=== PATIENT | female | born 1930 | race Caucasian/White ===

== ENCOUNTER 2016-10-23 22:02 | Inpatient (IN) | payer MEDICARE, OTHER, MEDICAID ==
[2016-10-23] MEDS ORDERED: Sodium Chloride 0.9% 1,000 ML IV SCH (22:15)
[2016-10-23] MEDS ORDERED: Levofloxacin/Dextrose 5%-Water 750 MG in Premix Bag 1 BAG IV ONE (23:22)
--- NOTE | 2016-10-24 00:19 | EDM.PDOC ---
ED HISTORY OF PRESENT ILLNESS - General Chief Complaint: Respiratory Problem Stated Complaint: [facility] Time Seen by Provider: 10/23/16 22:08 Source: Reports: Patient History Limitations: Reports: No limitations - History of Present Illness INITIAL COMMENTS - FREE TEXT/NARRATIVE: History of present illness: [86-year-old female is presenting [facility] with a cough congestion and fever and shortness of breath. Her sats are in the mid 80s off of O2. She is not O2 dependent usually. She is pleasant and alert and quite sharp for her age ] Review of systems: As per history of present illness and below otherwise all systems reviewed and negative. Past medical history: As per history of present illness and as reviewed below otherwise noncontributory. Surgical history: As per history of present illness and as reviewed below otherwise noncontributory. Social history: No reported history of drug or alcohol abuse. Family history: As per history of present illness and as reviewed below otherwise noncontributory. Physical exam: HEENT: Atraumatic, normocephalic, pupils reactive, negative for conjunctival pallor or scleral icterus, mucous membranes moist, throat clear, neck supple, nontender, trachea midline. Lungs: Breath sounds are diminished throughout her lung [place] Heart: S1S2, regular, negative for clicks, rubs, or JVD. Abdomen: Soft, nondistended, nontender. Negative for masses or hepatosplenomegaly. Negative for costovertebral tenderness. Pelvis: Stable nontender. Genitourinary: Deferred. Rectal: Deferred. Extremities: Atraumatic, negative for cords or calf pain. Neurovascular unremarkable. Neuro: Awake, alert, oriented Exam nonfocal. Diagnostics: [Chest x-ray suggests an interstitial pneumonia. Influenza A and B. are negative her white count is a little low platelet count is also a little low] Therapeutics: [We've given her IV Levaquin here in the ER] Impression: [Interstitial pneumonitis] Plan: [Patient will be admitted the hospitalist Swati has been contacted] Definitive disposition and diagnosis as appropriate pending reevaluation and review of above. - Related Data Allergies/ADRs: Allergies Allergy/AdvReac Type Severity Reaction Status Date / Time lactose Allergy Abdominal Verified 10/23/16 23:41 Pain Home Meds: Home Meds Bimatoprost [Lumigan 0.01% Ophth Soln] 1 drop EYEBOTH DAILY 09/14/14 [History] Timolol Maleate [Timoptic 0.5% Ophth Soln] 1 drop EYEBOTH BID 03/20/14 [History] amLODIPine Besylate [Amlodipine Besylate] 5 mg PO BID 03/20/14 [History] cloNIDine [Catapres] 0.2 mg PO TID 03/20/14 [History] Clopidogrel [Plavix] 75 mg PO DAILY 04/06/15 [History] Multivitamin [Multivitamins] 1 tab PO DAILY 04/06/15 [History] atorvaSTATin [Lipitor] 40 mg PO BEDTIME 04/06/15 [History] Acetaminophen 650 mg PO DAILY 10/13/15 [History] Hydrochlorothiazide [Microzide] 2 tab PO DAILY 10/13/15 [History] Losartan [Cozaar] 50 mg PO BID 10/13/15 [History] [place]-3 Fatty Acids [Fish Oil] 1,200 mg PO DAILY 10/13/15 [History] PEG 400/Hypromellose/Glycerin [Artificial Tears Drops] 1 drop EYEBOTH DAILY PRN 10/13/15 [History] Pramipexole [Mirapex] 0.125 mg PO BEDTIME 10/13/15 [History] Alum Hydrox/Mag Hydrox/Simeth [Maalox Advanced] 30 ml PO ASDIRECTED PRN [History] Bisacodyl [Biscolax] 10 mg RC ASDIRECTED PRN 10/23/16 [History] Bismuth Subsalicylate [Pepto Bismol] 30 ml PO ASDIRECTED PRN 10/23/16 [History] Loperamide [Imodium AD] 2 mg PO ASDIRECTED PRN 10/23/16 [History] Magnesium Hydroxide [Milk of Magnesia] 30 ml PO ASDIRECTED PRN 10/23/16 [History ] Polyethylene Glycol 3350 [MiraLAX] 17 gm PO ASDIRECTED PRN 10/23/16 [History] guaiFENesin [Tussin] 10 ml PO ASDIRECTED PRN 10/23/16 [History] Past Medical History HEENT History: Reports: Cataract, Glaucoma, Other (see below) Other HEENT History: dry eye Cardiovascular History: Reports: High cholesterol, Hypertension Gastrointestinal History: Reports: Chronic constipation, Other (see below) Other Gastrointestinal History: Dyspepsia. nausea Genitourinary History: Reports: Urinary incontinence Musculoskeletal History: Reports: Arthritis, Fracture, Other (see below) Other Musculoskeletal History: Left mid-radial fracture. restless leg syndrome Neurological History: Reports: CVA - Infectious Disease History Infectious Disease History: Reports: Chicken pox, Measles - Past Surgical History Other HEENT Surgeries/Procedures: cataracts Social & Family History - Tobacco Use Smoking Status *Q: Never Smoker Second Hand Smoke Exposure: No - Caffeine Use Caffeine Use: Reports: Coffee - Alcohol Use Days Per Week of Alcohol Use: 0 - Recreational Drug Use Recreational Drug Use: No ED ROS GENERAL - Review of Systems Review Of Systems: ROS reveals no pertinent complaints other than HPI. ED EXAM, GENERAL - Physical Exam Exam: See Below Course - Vital Signs Last Recorded V/S: Last Vital Signs Temp 38.2 C H 10/23/16 22:07 Pulse 83 10/23/16 22:31 Resp 20 10/23/16 22:07 BP 151/78 H 10/23/16 22:31 Pulse Ox 91 L 10/23/16 22:31 - Orders/Labs/Meds Orders: Active Orders 24 hr Category Date Time Status EKG Documentation Completion [RC] ASDIRECTED Care 10/23/16 22:09 Active Chest 1V Frontal [CR] Stat Exams 10/23/16 22:09 Taken CULTURE BLOOD [BC] Stat Lab 10/23/16 22:11 Ordered CULTURE BLOOD [] Stat Lab 10/23/16 22:15 Received CULTURE RESPIRATORY + SMEAR [] Stat Lab 10/23/16 23:13 Uncollected CULTURE STREP A CONFIRMATION [] Stat Lab 10/23/16 22:42 Results STREP SCRN A RAPID W CULT CONF [] Stat Lab 10/23/16 22:42 Ordered Levofloxacin/Dextrose 5%-Water [Levaquin in D5W 750 MG/ Med 10/23/16 23:22 Ordered 150 ML] 750 mg Premix Bag 1 bag IV ONETIME Sodium Chloride 0.9% [Normal Saline] 1,000 ml Med 10/23/16 22:15 Active IV ASDIRECTED EKG 12 Lead [EK] Stat Ther 10/23/16 22:08 Ordered Medication Orders Sodium Chloride (Normal Saline) 1,000 mls @ 125 mls/hr IV ASDIRECTED EMILIANO Last Admin: 10/23/16 22:42 Dose: 125 mls/hr Levofloxacin/Dextrose 750 mg/ (Premix) 150 mls @ 100 mls/hr IV ONETIME ONE Stop: 10/24/16 00:51 Last Admin: 10/23/16 23:31 Dose: 100 mls/hr Labs: Laboratory Tests 10/23/16 10/23/16 10/23/16 Range/Units 22:15 22:15 22:15 WBC 4.3 L (4.5-11.0) K/uL RBC 4.34 (3.30-5.50) M/uL Hgb 12.7 (12.0-15.0) g/dL Hct 38.3 (36.0-48.0) % MCV 88 (80-98) fL MCH 29 (27-31) pg MCHC 33 (32-36) % Plt Count 94 L (150-400) K/uL Neut % (Auto) 54 (36-66) % Lymph % (Auto) 30 (24-44) % [place] % (Auto) 13 H (2-6) % Eos % (Auto) 3 (2-4) % Baso % (Auto) 1 (0-1) % PT 10.7 (9.5-12.0) sec INR 1.01 (0.80-1.20) ABG Hemoglobin (12.0-16.0) g/dL ABG Oxyhemoglobin % ABG Carboxyhemoglobin (0.0-1.6) % ABG Methemoglobin % VBG pH (7.350-7.450) VBG pCO2 mm/Hg VBG pO2 mm/Hg VBG HCO3 mmol/L VBG Total CO2 mmol/L VBG O2 Saturation VBG O2 Content %vol VBG Base Excess mm/L O2 Delivery Device Sodium 137 L (140-148) mmol/L Potassium 4.2 (3.6-5.2) mmol/L Chloride 100 (100-108) mmol/L Carbon Dioxide 28 (21-32) mmol/L Anion Gap 13.2 (5.0-14.0) mmol/L BUN 30 H (7-18) mg/dL Creatinine 1.7 H (0.6-1.0) mg/dL Est Cr Clr Drug Dosing 20.94 mL/min Estimated GFR (MDRD) 28 L (>60) Glucose 144 H (74-106) mg/dL Lactic Acid (0.4-2.0) mmol/L Calcium 8.6 (8.5-10.1) mg/dL Total Bilirubin 0.4 (0.2-1.0) mg/dL AST 40 H D (15-37) U/L ALT 60 D (12-78) U/L Alkaline Phosphatase 133 H (46-116) U/L Troponin I < 0.017 (0.000-0.056) ng/mL C-Reactive Protein (0.0-0.3) mg/dL Kid-D-Pnfrjendaqr Pept 244 (5-450) pg/mL Total Protein 7.4 (6.4-8.2) g/dL Albumin 3.3 L (3.4-5.0) g/dL Globulin 4.1 H (2.3-3.5) g/dL Albumin/Globulin Ratio 0.8 L (1.2-2.2) Urine Color Urine Appearance Urine pH (4.5-8.0) Ur Specific [place] (1.008-1.030) Urine Protein (NEGATIVE) mg/dL Urine Glucose (UA) (NEGATIVE) mg/dL Urine Ketones (NEGATIVE) mg/dL Urine Occult Blood (NEGATIVE) Urine Nitrite (NEGATIVE) Urine Bilirubin (NEGATIVE) Urine Urobilinogen (NORMAL) mg/dL Ur Leukocyte Esterase (NEGATIVE) Urine RBC (0-5) Urine WBC (0-5) Ur Epithelial Cells Amorphous Sediment Urine Bacteria Urine Mucus 10/23/16 10/23/16 10/23/16 Range/Units 22:15 22:15 22:15 WBC (4.5-11.0) K/uL RBC (3.30-5.50) M/uL Hgb (12.0-15.0) g/dL Hct (36.0-48.0) % MCV (80-98) fL MCH (27-31) pg MCHC (32-36) % Plt Count (150-400) K/uL Neut % (Auto) (36-66) % Lymph % (Auto) (24-44) % [place] % (Auto) (2-6) % Eos % (Auto) (2-4) % Baso % (Auto) (0-1) % PT (9.5-12.0) sec INR (0.80-1.20) ABG Hemoglobin 12.5 (12.0-16.0) g/dL ABG Oxyhemoglobin 90.1 % ABG Carboxyhemoglobin 2.4 H (0.0-1.6) % ABG Methemoglobin 0.6 % VBG pH 7.462 H (7.350-7.450) VBG pCO2 36.6 mm/Hg VBG pO2 63.7 mm/Hg VBG HCO3 25.8 mmol/L VBG Total CO2 22.9 mmol/L VBG O2 Saturation 92.9 VBG O2 Content 15.8 %vol VBG Base Excess 2.5 mm/L O2 Delivery Device Room air Sodium (140-148) mmol/L Potassium (3.6-5.2) mmol/L Chloride (100-108) mmol/L Carbon Dioxide (21-32) mmol/L Anion Gap (5.0-14.0) mmol/L BUN (7-18) mg/dL Creatinine (0.6-1.0) mg/dL Est Cr Clr Drug Dosing mL/min Estimated GFR (MDRD) (>60) Glucose (74-106) mg/dL Lactic Acid 1.7 (0.4-2.0) mmol/L Calcium (8.5-10.1) mg/dL Total Bilirubin (0.2-1.0) mg/dL AST (15-37) U/L ALT (12-78) U/L Alkaline Phosphatase (46-116) U/L Troponin I (0.000-0.056) ng/mL C-Reactive Protein 3.80 H (0.0-0.3) mg/dL Rom-[id number] Pept (5-450) pg/mL Total Protein (6.4-8.2) g/dL Albumin (3.4-5.0) g/dL Globulin (2.3-3.5) g/dL Albumin/Globulin Ratio (1.2-2.2) Urine Color Urine Appearance Urine pH (4.5-8.0) Ur Specific [place] (1.008-1.030) Urine Protein (NEGATIVE) mg/dL Urine Glucose (UA) (NEGATIVE) mg/dL Urine Ketones (NEGATIVE) mg/dL Urine Occult Blood (NEGATIVE) Urine Nitrite (NEGATIVE) Urine Bilirubin (NEGATIVE) Urine Urobilinogen (NORMAL) mg/dL Ur Leukocyte Esterase (NEGATIVE) Urine RBC (0-5) Urine WBC (0-5) Ur Epithelial Cells Amorphous Sediment Urine Bacteria Urine Mucus 10/23/16 Range/Units 22:43 WBC (4.5-11.0) K/uL RBC (3.30-5.50) M/uL Hgb (12.0-15.0) g/dL Hct (36.0-48.0) % MCV (80-98) fL MCH (27-31) pg MCHC (32-36) % Plt Count (150-400) K/uL Neut % (Auto) (36-66) % Lymph % (Auto) (24-44) % [place] % (Auto) (2-6) % Eos % (Auto) (2-4) % Baso % (Auto) (0-1) % PT (9.5-12.0) sec INR (0.80-1.20) ABG Hemoglobin (12.0-16.0) g/dL ABG Oxyhemoglobin % ABG Carboxyhemoglobin (0.0-1.6) % ABG Methemoglobin % VBG pH (7.350-7.450) VBG pCO2 mm/Hg VBG pO2 mm/Hg VBG HCO3 mmol/L VBG Total CO2 mmol/L VBG O2 Saturation VBG O2 Content %vol VBG Base Excess mm/L O2 Delivery Device Sodium (140-148) mmol/L Potassium (3.6-5.2) mmol/L Chloride (100-108) mmol/L Carbon Dioxide (21-32) mmol/L Anion Gap (5.0-14.0) mmol/L BUN (7-18) mg/dL Creatinine (0.6-1.0) mg/dL Est Cr Clr Drug Dosing mL/min Estimated GFR (MDRD) (>60) Glucose (74-106) mg/dL Lactic Acid (0.4-2.0) mmol/L Calcium (8.5-10.1) mg/dL Total Bilirubin (0.2-1.0) mg/dL AST (15-37) U/L ALT (12-78) U/L Alkaline Phosphatase (46-116) U/L Troponin I (0.000-0.056) ng/mL C-Reactive Protein (0.0-0.3) mg/dL Zhl-L-Oslvcsndfxe Pept (5-450) pg/mL Total Protein (6.4-8.2) g/dL Albumin (3.4-5.0) g/dL Globulin (2.3-3.5) g/dL Albumin/Globulin Ratio (1.2-2.2) Urine Color Yellow Urine Appearance Clear Urine pH 5.0 (4.5-8.0) Ur Specific [place] 1.020 (1.008-1.030) Urine Protein Negative (NEGATIVE) mg/dL Urine Glucose (UA) Normal (NEGATIVE) mg/dL Urine Ketones Negative (NEGATIVE) mg/dL Urine Occult Blood Moderate (NEGATIVE) Urine Nitrite Negative (NEGATIVE) Urine Bilirubin Negative (NEGATIVE) Urine Urobilinogen Normal (NORMAL) mg/dL Ur Leukocyte Esterase Negative (NEGATIVE) Urine RBC 10-20 H (0-5) Urine WBC 0-5 (0-5) Ur Epithelial Cells Rare Amorphous Sediment Not seen Urine Bacteria Not seen Urine Mucus Not seen Meds: Medications Generic Name Dose Route Start Last Admin Trade Name Freq PRN Reason Stop Dose Admin Sodium Chloride 1,000 mls @ 125 mls/hr 10/23/16 22:15 10/23/16 22:42 Normal Saline IV 125 mls/hr ASDIRECTED EMILIANO Administration Levofloxacin/Dextrose 750 mg/ 150 mls @ 100 mls/hr 10/23/16 23:22 10/23/16 23 :31 Premix IV 10/24/16 00:51 100 mls/hr ONETIME ONE Administration Departure - Departure Time of Disposition: 00:21 Disposition: Admitted As Inpatient 65 Condition: fair Clinical Impression: Pneumonia Qualifiers: Pneumonia type: due to unspecified organism Laterality: bilateral Lung location : unspecified part of lung Qualified Code(s): J18.9 - Pneumonia, unspecified organism Forms: ED Department Discharge - My Orders Last 24 Hours: My Active Orders 10/23/16 22:08 EKG 12 Lead [EK] Stat 10/23/16 22:09 EKG Documentation Completion [RC] ASDIRECTED Chest 1V Frontal [CR] Stat 10/23/16 22:11 CULTURE BLOOD [BC] Stat 10/23/16 22:15 CULTURE BLOOD [BC] Stat Sodium Chloride 0.9% [Normal Saline] 1,000 ml IV ASDIRECTED 10/23/16 22:42 CULTURE STREP A CONFIRMATION [RM] Stat STREP SCRN A RAPID W CULT CONF [RM] Stat 10/23/16 23:13 CULTURE RESPIRATORY + SMEAR [RM] Stat 10/23/16 23:22 Levofloxacin/Dextrose 5%-Water [Levaquin in D5W 750 MG/150 ML] 750 mg Premix Bag 1 bag IV ONETIME - Assessment/Plan Last 24 Hours: My Active Orders 10/23/16 22:08 EKG 12 Lead [EK] Stat 10/23/16 22:09 EKG Documentation Completion [RC] ASDIRECTED Chest 1V Frontal [CR] Stat 10/23/16 22:11 CULTURE BLOOD [BC] Stat 10/23/16 22:15 CULTURE BLOOD [BC] Stat Sodium Chloride 0.9% [Normal Saline] 1,000 ml IV ASDIRECTED 10/23/16 22:42 CULTURE STREP A CONFIRMATION [RM] Stat STREP SCRN A RAPID W CULT CONF [RM] Stat 10/23/16 23:13 CULTURE RESPIRATORY + SMEAR [RM] Stat 10/23/16 23:22 Levofloxacin/Dextrose 5%-Water [Levaquin in D5W 750 MG/150 ML] 750 mg Premix Bag 1 bag IV ONETIME
[2016-10-24] MEDS ORDERED: Aluminum Hydroxide/Magnesium Hydroxide/Simethicone Susp 30 ML Cup PO PRN (01:17)
[2016-10-24] MEDS ORDERED: oxyCODONE 5 MG Tab PO PRN (01:17)
[2016-10-24] MEDS ORDERED: Docusate Sodium 100 MG Cap PO PRN (01:17)
[2016-10-24] MEDS ORDERED: guaiFENesin 100 MG/5 ML Soln 10 ML UD Cup PO PRN (01:17)
[2016-10-24] MEDS ORDERED: Albuterol 0.083% 2.5 MG/3 ML Neb Soln NEB PRN (01:17)
[2016-10-24] MEDS ORDERED: Ondansetron 4 MG Tab.DIS PO PRN (01:17)
[2016-10-24] MEDS ORDERED: Ondansetron 4 MG/2 ML SDV IV PRN (01:17)
[2016-10-24] MEDS ORDERED: Bisacodyl 5 MG Tab PO PRN (01:17)
[2016-10-24] MEDS ORDERED: Sodium Chloride 0.9% 1,000 ML IV SCH (01:17)
[2016-10-24] MEDS ORDERED: LORazepam 2 MG/ML MDV IV PRN (01:17)
[2016-10-24] MEDS ORDERED: Levofloxacin/Dextrose 5%-Water 750 MG in Premix Bag 1 BAG IV SCH (01:30)
--- NOTE | 2016-10-24 01:39 | PCM.HP ---
H&P History of Present Illness - General Date of Service: 10/23/16 Admit Problem/Dx: Admission Diagnosis/Problem Admission Diagnosis/Problem Pneumonia Source of Information: Patient, Family (Allison Coughlin, friend, Power of [place]outier[place] ) History Limitations: Reports: No limitations, Other (hardof hearing) - History of Present Illness Initial Comments - Free Text/Narative: History of present illness: [86-year-old female is presenting from [facility] with a cough congestion and fever and shortness of breath. Her sats are in the mid 80s off of O2. She is not O2 dependent usually. She is pleasant and alert and quite sharp for her age ] Review of systems: As per history of present illness and below otherwise all systems reviewed and negative. Past medical history: As per history of present illness and as reviewed below otherwise noncontributory. Surgical history: As per history of present illness and as reviewed below otherwise noncontributory. Social history: No reported history of drug or alcohol abuse. Family history: As per history of present illness and as reviewed below otherwise noncontributory. Onset of Symptoms: Reports: gradual Symptom Onset Date: 10/19/16 Duration of Symptoms: Reports: Day(s): Location: Reports: chest, generalized Quality: Reports: Other (cough) Improves with: Reports: None Worsens with: Reports: None Context: Reports: other (illness) Associated Symptoms: Reports: cough, fever/chills, shortness of breath - Related Data Allergies/Adverse Reactions: Allergies Allergy/AdvReac Type Severity Reaction Status Date / Time lactose Allergy Abdominal Verified 10/23/16 23:41 Pain Home Medications: Home Meds Bimatoprost [Lumigan 0.01% Ophth Soln] 1 drop EYEBOTH DAILY 03/20/14 [History] Timolol Maleate [Timoptic 0.5% Ophth Soln] 1 drop EYEBOTH BID 03/20/14 [History] amLODIPine Besylate [Amlodipine Besylate] 5 mg PO BID 03/20/14 [History] cloNIDine [Catapres] 0.2 mg PO TID 03/20/14 [History] Clopidogrel [Plavix] 75 mg PO DAILY 04/06/15 [History] Multivitamin [Multivitamins] 1 tab PO DAILY 04/06/15 [History] atorvaSTATin [Lipitor] 40 mg PO BEDTIME 04/06/15 [History] Acetaminophen 650 mg PO DAILY 10/13/15 [History] Hydrochlorothiazide [Microzide] 2 tab PO DAILY 10/13/15 [History] Losartan [Cozaar] 50 mg PO BID 10/13/15 [History] [place]-3 Fatty Acids [Fish Oil] 1,200 mg PO DAILY 10/13/15 [History] PEG 400/Hypromellose/Glycerin [Artificial Tears Drops] 1 drop EYEBOTH DAILY PRN 10/13/15 [History] Pramipexole [Mirapex] 0.125 mg PO BEDTIME 10/13/15 [History] Alum Hydrox/Mag Hydrox/Simeth [Maalox Advanced] 30 ml PO ASDIRECTED PRN [History] Bisacodyl [Biscolax] 10 mg RC ASDIRECTED PRN 10/23/16 [History] Bismuth Subsalicylate [Pepto Bismol] 30 ml PO ASDIRECTED PRN 10/23/16 [History] Loperamide [Imodium AD] 2 mg PO ASDIRECTED PRN 10/23/16 [History] Magnesium Hydroxide [Milk of Magnesia] 30 ml PO ASDIRECTED PRN 10/23/16 [History ] Polyethylene Glycol 3350 [MiraLAX] 17 gm PO ASDIRECTED PRN 10/23/16 [History] guaiFENesin [Tussin] 10 ml PO ASDIRECTED PRN 10/23/16 [History] Past Medical History HEENT History: Reports: Cataract, Glaucoma, Other (see below) Other HEENT History: dry eye Cardiovascular History: Reports: High cholesterol, Hypertension Gastrointestinal History: Reports: Chronic constipation, Other (see below) Other Gastrointestinal History: Dyspepsia. nausea Genitourinary History: Reports: Urinary incontinence Musculoskeletal History: Reports: Arthritis, Fracture, Other (see below) Other Musculoskeletal History: Left mid-radial fracture. restless leg syndrome Neurological History: Reports: CVA - Infectious Disease History Infectious Disease History: Reports: Chicken pox, Measles - Past Surgical History Other HEENT Surgeries/Procedures: cataracts Social & Family History - Tobacco Use Smoking Status *Q: Never Smoker Second Hand Smoke Exposure: No - Caffeine Use Caffeine Use: Reports: Coffee - Alcohol Use Days Per Week of Alcohol Use: 0 - Recreational Drug Use Recreational Drug Use: No - Living Situation & Occupation Living situation: Reports: ( Pedro 1992, has lived at [facility] since February 2014. no children.) H&P Review of Systems - Review of Systems: Review Of Systems: See Below General: Reports: fever, malaise, weakness HEENT: Reports: no symptoms Pulmonary: Reports: Shortness of Breath, Pleuritic Chest Pain, Cough, Sputum Cardiovascular: Reports: no symptoms Gastrointestinal: Reports: No symptoms Genitourinary: Reports: no symptoms Musculoskeletal: Reports: no symptoms Skin: Reports: no symptoms Psychiatric: Reports: no symptoms Neurological: Reports: No Symptoms Hematologic/Lymphatic: Reports: no symptoms Immunologic: Reports: no symptoms Exam - Exam Exam: See Below - Vital Signs Vital Signs: Last Vital Signs Temp 37.1 C 10/24/16 00:10 Pulse 72 10/24/16 00:10 Resp 20 10/24/16 00:10 BP 136/72 10/24/16 00:10 Pulse Ox 93 L 10/24/16 00:10 Weight: 90.718 kg - Exam Quality Assessment: supplemental oxygen General: alert, oriented, 4 HEENT: PERRLA, Conjunctiva clear, EACs clear, EOMI, Nares patent, Other (hard of hearing, does not have her hearing aides) Neck: supple, trachea midline Lungs: Decreased breath sounds, Crackles Cardiovascular: regular rate, regular rhythm, normal S1, normal S2 Abdomen: normal bowel sounds, soft, distention (normal for Mrs. Tapia) (Female) Exam: Deferred Rectal (Female) Exam: Deferred Extremities: edema (2+ pitting edema to knees) Peripheral Pulses: 2+: radial (L), radial (R) Skin: warm, dry, intact Neurological: reflexes equal bilateral, strength equal bilateral Neuro Extensive - Mental Status: alert, oriented x3, normal mood/affect, normal cognition, memory intact Psychiatric: alert, normal affect, normal mood - Patient Data Result Diagrams: 10/23/16 22:15 10/23/16 22:15 *Q Meaningful Use (ADM) - VTE *Q VTE Criteria *Q: - Stroke *Q Stroke Criteria *Q: - AMI *Q AMI Criteria *Q: - Problem List (1) Pneumonia SNOMED Code(s): 414363680 ICD Code: J18.9 - PNEUMONIA, UNSPECIFIED ORGANISM Status: Acute Priority : High Current Visit: Yes Qualifiers: Pneumonia type: due to unspecified organism Laterality: bilateral Lung location: unspecified part of lung Qualified Code(s): J18.9 - Pneumonia, unspecified organism (2) Hypertension SNOMED Code(s): 87951885 ICD Code: I10 - ESSENTIAL (PRIMARY) HYPERTENSION Status: Chronic Priority : Medium Current Visit: No Qualifiers: Hypertension type: essential hypertension Qualified Code(s): I10 - Essential (primary) hypertension Problem List Initiated/Reviewed/Updated: Yes Orders Last 24hrs: Active Orders 24 hr Category Date Time Status Patient Status [ADT] Routine ADT 10/24/16 01:17 Active Cardiac Monitoring [RC] .As Directed Care 10/24/16 01:17 Active Intake and Output [RC] QSHIFT Care 10/24/16 01:17 Active Oxygen Therapy [RC] PRN Care 10/24/16 01:17 Active Pulse Oximetry [RC] CONTINUOUS Care 10/24/16 01:17 Active RT Aerosol Therapy [RC] ASDIRECTED Care 10/24/16 01:17 Active Up With Assistance [RC] ASDIRECTED Care 10/24/16 01:17 Active VTE/DVT Education [RC] Per Unit Routine Care 10/24/16 01:17 Active Vital Signs [RC] Q4H Care 10/24/16 01:17 Active Regular Diet [DIET] Diet 10/24/16 Breakfast Active BASIC METABOLIC PANEL,BMP [CHEM] AM Lab 10/24/16 05:11 Ordered CBC WITH AUTO DIFF [HEME] AM Lab 10/24/16 05:11 Ordered GLUCOSE POC LAB TO COLLECT [POC] QIDACANDBED Lab 10/24/16 07:30 Ordered GLUCOSE POC LAB TO COLLECT [POC] QIDACANDBED Lab 10/24/16 11:30 Ordered GLUCOSE POC LAB TO COLLECT [POC] QIDACANDBED Lab 10/24/16 16:30 Ordered GLUCOSE POC LAB TO COLLECT [POC] QIDACANDBED Lab 10/24/16 21:00 Ordered Acetaminophen [Tylenol] Med 10/24/16 09:00 Active 650 mg PO DAILY Acetaminophen [Tylenol] Med 10/24/16 01:17 Active 650 mg PO Q4H PRN Albuterol [Proventil Neb Soln] Med 10/24/16 01:17 Active 2.5 mg NEB Q4H PRN Albuterol/Ipratropium [DuoNeb 3.0-0.5 MG/3 ML] Med 10/24/16 06:00 Active 3 ml NEB QID Alum Hydrox/Mag Hydrox/Simeth [Mag-Al Plus] Med 10/24/16 01:17 Active 30 ml PO ASDIRECTED PRN Bimatoprost [LUMIGAN 0.01% Ophth Soln] Med 10/24/16 09:00 Active 0 ml EYEBOTH DAILY Bisacodyl [Dulcolax] Med 10/24/16 01:17 Active 5 mg PO DAILY PRN Clopidogrel [Plavix] Med 10/24/16 09:00 Active 75 mg PO DAILY Docusate Sodium [Colace] Med 10/24/16 01:17 Active 100 mg PO BID PRN Hydrochlorothiazide Med 10/24/16 09:00 Ordered DOSE mg PO DAILY LORazepam [Ativan] Med 10/24/16 01:17 Active 1 mg IV Q6H PRN Levofloxacin/Dextrose 5%-Water [Levaquin in D5W 750 MG/ Med 10/24/16 01:30 Active 150 ML] 750 mg Premix Bag 1 bag IV Q48H Losartan [Cozaar] Med 10/24/16 09:00 Active 50 mg PO BID Ondansetron [Zofran ODT] Med 10/24/16 01:17 Active 4 mg PO Q6H PRN Ondansetron [Zofran] Med 10/24/16 01:17 Active 4 mg IV Q4H PRN PEG 400/Hypromellose/Glycerin [Artificial Tears Drops] Med 10/24/16 01:17 Ordered 1 drop EYEBOTH DAILY PRN Pantoprazole [ProTONIX IV] Med 10/24/16 09:00 Active 40 mg IVPUSH DAILY Pramipexole [Mirapex] Med 10/24/16 21:00 Ordered 0.125 mg PO BEDTIME Sodium Chloride 0.9% [Normal Saline] 1,000 ml Med 10/24/16 01:17 Active IV ASDIRECTED Timolol Maleate [Timoptic 0.5% Ophth Soln] Med 10/24/16 09:00 Active 0 ml EYEBOTH BID amLODIPine [Norvasc] Med 10/24/16 09:00 Active 5 mg PO BID cloNIDine [Catapres] Med 10/24/16 09:00 Ordered 0.2 mg PO TID guaiFENesin [Robitussin] Med 10/24/16 01:17 Active 100 mg PO ASDIRECTED PRN oxyCODONE Med 10/24/16 01:17 Active 5 mg PO Q4H PRN Blood Culture x2 Reflex Set [OM.PC] Urgent Oth 10/24/16 01:17 Ordered Give supplemental Oxygen PRN [COMM] Routine Oth 10/24/16 01:17 Ordered Sequential Compression Device [OM.PC] Per Unit Routine Oth 10/24/16 01:17 Ordered Resuscitation Status Routine Resus Stat 10/24/16 00:42 Ordered Medication Orders Acetaminophen (Tylenol) 650 mg PO Q4H PRN PRN Reason: Pain (Mild 1-3)/fever Acetaminophen (Tylenol) 650 mg PO DAILY [facility] Al Hydroxide/Mg Hydroxide (Mag-Al Plus) 30 ml PO ASDIRECTED PRN PRN Reason: stomach upset Albuterol (Proventil Neb Soln) 2.5 mg NEB Q4H PRN PRN Reason: Shortness Of Breath/wheezing Albuterol/Ipratropium (Duoneb 3.0-0.5 Mg/3 Ml) 3 ml NEB QID [facility] Amlodipine Besylate (Norvasc) 5 mg PO BID [facility] Bimatoprost (Lumigan 0.01% Ophth Soln) 0 ml EYEBOTH DAILY [facility] Bisacodyl (Dulcolax) 5 mg PO DAILY PRN PRN Reason: Constipation Clopidogrel Bisulfate (Plavix) 75 mg PO DAILY [facility] Docusate Sodium (Colace) 100 mg PO BID PRN PRN Reason: Constipation Guaifenesin (Robitussin) 100 mg PO ASDIRECTED PRN PRN Reason: Cough Hydrochlorothiazide (Hydrochlorothiazide) mg PO DAILY [facility] Levofloxacin/Dextrose 750 mg/ (Premix) 150 mls @ 100 mls/hr IV Q48H [facility] Sodium Chloride (Normal Saline) 1,000 mls @ 100 mls/hr IV ASDIRECTED [facility] Lorazepam (Ativan) 1 mg IV Q6H PRN PRN Reason: Nausea/Vomiting Losartan Potassium (Cozaar) 50 mg PO BID [facility] Non-Formulary Medication (Peg 400/Hypromellose/Glycerin [Artificial Tears Drops] ) 1 drop EYEBOTH DAILY PRN PRN Reason: Dry Eyes Non-Formulary Medication (Clonidine [Catapres]) 0.2 mg PO TID [facility] Ondansetron HCl (Zofran Odt) 4 mg PO Q6H PRN PRN Reason: Nausea able to take PO Ondansetron HCl (Zofran) 4 mg IV Q4H PRN PRN Reason: Nausea/Vomiting Oxycodone HCl (Oxycodone) 5 mg PO Q4H PRN PRN Reason: Pain (moderate 4-6) Pantoprazole Sodium (Protonix Iv) 40 mg IVPUSH DAILY [facility] Pramipexole Dihydrochloride (Mirapex) 0.125 mg PO BEDTIME [facility] Timolol Maleate (Timoptic 0.5% Ophth Soln) 0 ml EYEBOTH BID [facility] Assessment/Plan Comment:: ASSESSMENT / PLAN -This is a 86 year old female present to ER via EMS from [facility]. She was noted to have worsen cough, fever, and shortness of breath. Oxygen saturation in 70's to 80's prior to arrival at ER. Chest xray suggest pneumonia. plan to admit to Hospital for further care and medical management. Plan -Admit to [address] [place] [address] for further monitoring Pneumonia -Telemetry -Oxygen per nasal cannula -IV fluids for rehydration NS at 125 mL per hour x one liter then saline lock. -Advise to notify nurses of any chest pain or other symptoms -And a.m. labs: CBC, BMP -IV Levofloxin 750mg give in ER Hypertension -order home medications Maintenance issues -Orders home meds: order -Nutrition: Regular diet -Mckeon catheter not indicated at this time -DVT: SCD CODE STATUS: Full Admission status: Admit to [address] [place] [address] Admission justification. This patient will be admitted for inpatient services and is medically appropriate meeting medical necessity for inpatient admission as outlined in my documentation. I reasonably expect the patient will require inpatient services that span. Time over 2 midnights. I reasonably expect this patient to be discharged or transferred within 96 hours after admission to the critical access hospital. Disposition; [facility] Primary care provider: Dr. Calvillo
[2016-10-24] MEDS ORDERED: Albuterol/Ipratropium 3.0-0.5 MG/3 ML Neb Soln NEB SCH (06:00)
[2016-10-24] MEDS: Acetaminophen 325 MG Tab PO PRN (06:19)
[2016-10-24] MEDS ORDERED: amLODIPine 10 MG Tab PO SCH (09:00)
[2016-10-24] MEDS ORDERED: Hydrochlorothiazide 12.5 MG Cap PO SCH (09:00)
[2016-10-24] MEDS ORDERED: Pantoprazole 40 MG Vial IVPUSH SCH (09:00)
[2016-10-24] MEDS: Acetaminophen 325 MG Tab PO SCH (09:58)
[2016-10-24] MEDS: Clopidogrel 75 MG Tab PO SCH (09:59)
[2016-10-24] MEDS: cloNIDine 0.1 MG Tab PO SCH ×3 (09:59→21:12)
[2016-10-24] MEDS: Losartan 50 MG Tab PO SCH ×2 (09:59→21:12)
[2016-10-24] MEDS: Hydrochlorothiazide 25 MG Tab PO SCH (09:59)
[2016-10-24] MEDS: amLODIPine 5 MG Tab PO SCH ×2 (09:59→21:13)
[2016-10-24] MEDS: Timolol Maleate 0.5% Ophth Soln 5 ML Bottle EYEBOTH SCH ×3 (10:00→21:11)
--- NOTE | 2016-10-24 10:39 | CR ---
Mild cardiomegaly. Mild interstitial thickening has increased compared to remote examination in 2010 . This could be chronic. Correlate for mild interstitial edema or atypical infection. No focal conso lidation.
[2016-10-24] MEDS: Albuterol/Ipratropium 3.0-0.5 MG/3 ML Neb Soln NEB SCH ×3 (11:09→21:16)
[2016-10-24] MEDS ORDERED: Furosemide 40 MG/4 ML VIAL IVPUSH ONE (12:31)
--- NOTE | 2016-10-24 12:49 | PCM.PN ---
- General Info Date of Service: 10/24/16 - Review of Systems General: Reports: Weakness. Denies: Fever, Chills Pulmonary: Reports: no symptoms, shortness of breath, cough, wheezing. Denies: sputum, hemoptysis Cardiovascular: Reports: Dyspnea on Exertion, Edema. Denies: Chest Pain, Palpitations, Orthopnea, PND, Lightheadedness Gastrointestinal: Reports: No symptoms Systems Review Comment:: This patient is an 86-year-old woman who is admitted through the emergency room last night because of increased shortness of breath and hypoxia. There was question of possible infiltrate noted on chest x-ray as well as evidence of some fluid overload. She's feeling better this morning on current interventions with nebulizer therapy and antibiotics. Cough is only minimal at this time, she is been afebrile and hemodynamically stable. - Patient Data Vitals - most recent: Last Vital Signs Temp 98.7 F 10/24/16 07:00 Pulse 75 10/24/16 11:09 Resp 16 10/24/16 07:00 BP 178/89 H 10/24/16 09:59 Pulse Ox 94 L 10/24/16 11:09 Weight - most recent: 219 lb 4 oz I&O - last 24 hours: Intake & Output 10/23/16 10/24/16 10/24/16 22:59 06:59 14:59 Intake Total 20 983 Output Total 1075 Balance -1055 983 Lab Results last 24 hrs: Laboratory Results - last 24 hr 10/24/16 10/24/16 Range/Units 05:00 05:00 WBC 3.8 L (4.5-11.0) K/uL RBC 4.36 (3.30-5.50) M/uL Hgb 12.6 (12.0-15.0) g/dL Hct 38.8 (36.0-48.0) % MCV 89 (80-98) fL MCH 29 (27-31) pg MCHC 33 (32-36) % Plt Count 82 L (150-400) K/uL Neut % (Auto) 49 (36-66) % Lymph % (Auto) 34 (24-44) % [place] % (Auto) 10 H (2-6) % Eos % (Auto) 5 H (2-4) % Baso % (Auto) 1 (0-1) % Sodium 140 (140-148) mmol/L Potassium 3.9 (3.6-5.2) mmol/L Chloride 103 (100-108) mmol/L Carbon Dioxide 28 (21-32) mmol/L Anion Gap 9.2 (5.0-14.0) mmol/L BUN 26 H (7-18) mg/dL Creatinine 1.5 H (0.6-1.0) mg/dL Est Cr Clr Drug Dosing 23.74 mL/min Estimated GFR (MDRD) 33 L (>60) Glucose 105 (74-106) mg/dL Calcium 8.5 (8.5-10.1) mg/dL Med Orders - Current: Current Medications Acetaminophen (Tylenol) 650 mg PO Q4H PRN PRN Reason: Pain (Mild 1-3)/fever Last Admin: 10/24/16 06:19 Dose: 650 mg Acetaminophen (Tylenol) 650 mg PO DAILY [facility] Last Admin: 10/24/16 09:58 Dose: 650 mg Al Hydroxide/Mg Hydroxide (Mag-Al Plus) 30 ml PO ASDIRECTED PRN PRN Reason: stomach upset Albuterol (Proventil Neb Soln) 2.5 mg NEB Q4H PRN PRN Reason: Shortness Of Breath/wheezing Albuterol/Ipratropium (Duoneb 3.0-0.5 Mg/3 Ml) 3 ml NEB QIDRT [facility] Last Admin: 10/24/16 11:09 Dose: 3 ml Amlodipine Besylate (Norvasc) 5 mg PO BID [facility] Last Admin: 10/24/16 09:59 Dose: 5 mg Bisacodyl (Dulcolax) 5 mg PO DAILY PRN PRN Reason: Constipation Clonidine HCl (Catapres) 0.2 mg PO TID [facility] Last Admin: 10/24/16 09:59 Dose: 0.2 mg Clopidogrel Bisulfate (Plavix) 75 mg PO DAILY [facility] Last Admin: 10/24/16 09:59 Dose: 75 mg Docusate Sodium (Colace) 100 mg PO BID PRN PRN Reason: Constipation Furosemide (Lasix) 60 mg IVPUSH ONETIME ONE Stop: 10/24/16 12:32 Guaifenesin (Robitussin) 100 mg PO ASDIRECTED PRN PRN Reason: Cough Hydrochlorothiazide (Hydrochlorothiazide) 25 mg PO DAILY [facility] Last Admin: 10/24/16 09:59 Dose: 25 mg Levofloxacin/Dextrose 750 mg/ (Premix) 150 mls @ 100 mls/hr IV Q48H [facility] Latanoprost (Xalatan 0.005% Ophth Soln) 0 ml EYEBOTH BEDTIME [facility] Lorazepam (Ativan) 1 mg IV Q6H PRN PRN Reason: Nausea/Vomiting Losartan Potassium (Cozaar) 50 mg PO BID [facility] Last Admin: 10/24/16 09:59 Dose: 50 mg Non-Formulary Medication (Peg 400/Hypromellose/Glycerin [Artificial Tears Drops] ) 1 drop EYEBOTH DAILY PRN PRN Reason: Dry Eyes Ondansetron HCl (Zofran Odt) 4 mg PO Q6H PRN PRN Reason: Nausea able to take PO Ondansetron HCl (Zofran) 4 mg IV Q4H PRN PRN Reason: Nausea/Vomiting Oxycodone HCl (Oxycodone) 5 mg PO Q4H PRN PRN Reason: Pain (moderate 4-6) Pramipexole Dihydrochloride (Mirapex) 0.125 mg PO BEDTIME [facility] Timolol Maleate (Timoptic 0.5% Ophth Soln) 0 ml EYEBOTH BID [facility] Last Admin: 10/24/16 10:00 Dose: 2 drop Discontinued Medications Albuterol/Ipratropium (Duoneb 3.0-0.5 Mg/3 Ml) 3 ml NEB QID [facility] Last Admin: 10/24/16 06:07 Dose: 3 ml Sodium Chloride (Normal Saline) 1,000 mls @ 125 mls/hr IV ASDIRECTED [facility] Stop: 10/24/16 01:17 Last Admin: 10/23/16 22:42 Dose: 125 mls/hr Levofloxacin/Dextrose 750 mg/ (Premix) 150 mls @ 100 mls/hr IV ONETIME ONE Stop: 10/24/16 00:51 Last Admin: 10/23/16 23:31 Dose: 100 mls/hr Levofloxacin/Dextrose 750 mg/ (Premix) 150 mls @ 100 mls/hr IV Q48H [facility] Last Admin: 10/24/16 02:26 Dose: Not Given Sodium Chloride (Normal Saline) 1,000 mls @ 100 mls/hr IV ASDIRECTED [facility] Pantoprazole Sodium (Protonix Iv) 40 mg IVPUSH DAILY [facility] Last Admin: 10/24/16 10:00 Dose: 40 mg - Exam Quality Assessment: supplemental oxygen, DVT prophylaxis General: alert, oriented, cooperative Lungs: Clear to auscultation, Normal respiratory effort Cardiovascular: Regular Rate, Regular Rhythm, No Murmurs Abdomen: bowel sounds present, soft, no tenderness, no distension Extremities: no edema Skin: warm, dry, intact - Problem List Review Problem List Initiated/Reviewed/Updated: Yes - My Orders Last 24 Hours: My Active Orders 10/24/16 12:31 Furosemide [Lasix] 60 mg IVPUSH ONETIME ONE 10/24/16 12:32 Convert IV to Saline Lock [OM.PC] Routine 10/24/16 Lunch 2 Gram Sodium Diet [DIET] 10/25/16 05:00 BASIC METABOLIC PANEL,BMP [CHEM] Timed CBC WITH AUTO DIFF [HEME] Timed - Plan Plan:: ASSESSMENT / PLAN Pneumonia -Oxygen per nasal cannula -Saline lock IV -Advise to notify nurses of any chest pain or other symptoms -And a.m. labs: CBC, BMP -IV Levofloxin 750mg give in ER Hypoxia -Supplemental oxygen as needed -Nebulizer therapy as needed Fluid overload-chest x-ray does show some evidence of pulmonary edema, she has no previous history of congestive heart failure -Furosemide 60 mg IV now -Reassess in the a.m. -Recheck labs in a.m. Chronic kidney disease stage III -Closely monitor urine output and renal function during hospital stay Hypertension -order home medications Maintenance issues -Orders home meds: order -Nutrition: Regular diet -Mckeon catheter not indicated at this time -DVT: SCD CODE STATUS: Full Admission status: Admit to [address] [place] [address] Admission justification. This patient will be admitted for inpatient services and is medically appropriate meeting medical necessity for inpatient admission as outlined in my documentation. I reasonably expect the patient will require inpatient services that span. Time over 2 midnights. I reasonably expect this patient to be discharged or transferred within 96 hours after admission to the critical access hospital. Disposition; [facility] Primary care provider: Dr. Calvillo
[2016-10-24] MEDS: Latanoprost 0.005% Ophth Soln 2.5 ML Bottle EYEBOTH SCH (21:12)
[2016-10-24] MEDS: Pramipexole 0.5 MG Tab PO SCH (21:13)
[2016-10-25] MEDS: Acetaminophen 325 MG Tab PO PRN ×2 (01:58→20:47)
[2016-10-25] MEDS: Albuterol/Ipratropium 3.0-0.5 MG/3 ML Neb Soln NEB SCH ×4 (07:15→20:34)
[2016-10-25] MEDS: cloNIDine 0.1 MG Tab PO SCH ×3 (08:41→20:31)
[2016-10-25] MEDS: amLODIPine 5 MG Tab PO SCH ×2 (08:42→20:33)
[2016-10-25] MEDS: Hydrochlorothiazide 25 MG Tab PO SCH (08:42)
[2016-10-25] MEDS: Losartan 50 MG Tab PO SCH ×2 (08:42→20:32)
[2016-10-25] MEDS: Timolol Maleate 0.5% Ophth Soln 5 ML Bottle EYEBOTH SCH ×2 (08:43→20:30)
[2016-10-25] MEDS: Acetaminophen 325 MG Tab PO SCH (08:43)
[2016-10-25] MEDS: Clopidogrel 75 MG Tab PO SCH (08:43)
[2016-10-25] MEDS ORDERED: Sodium Chloride 0.9% 1,000 ML IV SCH (12:15)
--- NOTE | 2016-10-25 15:41 | PCM.PN ---
- General Info Date of Service: 10/25/16 Functional Status: Reports: pain controlled - Review of Systems General: Reports: Weakness. Denies: Fever, Chills Pulmonary: Reports: shortness of breath, cough, wheezing. Denies: pleuritic chest pain, sputum, hemoptysis Cardiovascular: Reports: Dyspnea on Exertion. Denies: Chest Pain, Palpitations , Orthopnea, PND, Edema Gastrointestinal: Reports: No symptoms Systems Review Comment:: This patient has been stable since admission, shortness of breath and cough seem to be slowly improving. Continues to experience significant amount of wheezing, has not had a previous history of asthma or COPD. She has not noted significant improvement with attempted diuresis yesterday and her renal function has shown a decline with elevation in creatinine to 2.2. Vital signs have been stable and she has remained afebrile. - Patient Data Vitals - most recent: Last Vital Signs Temp 98.6 F 10/25/16 11:27 Pulse 68 10/25/16 11:27 Resp 16 10/25/16 11:27 BP 126/69 10/25/16 13:30 Pulse Ox 95 10/25/16 11:27 Weight - most recent: 219 lb 4 oz I&O - last 24 hours: Intake & Output 10/25/16 10/25/16 10/25/16 06:59 14:59 22:59 Intake Total 480 480 Balance 480 480 Lab Results last 24 hrs: Laboratory Results - last 24 hr 10/25/16 10/25/16 Range/Units 05:37 05:37 WBC 5.0 (4.5-11.0) K/uL RBC 3.96 (3.30-5.50) M/uL Hgb 11.5 L (12.0-15.0) g/dL Hct 35.7 L (36.0-48.0) % MCV 90 (80-98) fL MCH 29 (27-31) pg MCHC 32 (32-36) % Plt Count 81 L (150-400) K/uL Neut % (Auto) 49 (36-66) % Lymph % (Auto) 36 (24-44) % [place] % (Auto) 11 H (2-6) % Eos % (Auto) 4 (2-4) % Baso % (Auto) 1 (0-1) % Sodium 139 L (140-148) mmol/L Potassium 4.0 (3.6-5.2) mmol/L Chloride 103 (100-108) mmol/L Carbon Dioxide 28 (21-32) mmol/L Anion Gap 12.0 (5.0-14.0) mmol/L BUN 36 H (7-18) mg/dL Creatinine 2.2 H (0.6-1.0) mg/dL Est Cr Clr Drug Dosing 16.18 mL/min Estimated GFR (MDRD) 21 L (>60) Glucose 106 (74-106) mg/dL Calcium 7.9 L (8.5-10.1) mg/dL Med Orders - Current: Current Medications Acetaminophen (Tylenol) 650 mg PO Q4H PRN PRN Reason: Pain (Mild 1-3)/fever Last Admin: 10/25/16 01:58 Dose: 650 mg Acetaminophen (Tylenol) 650 mg PO DAILY [facility] Last Admin: 10/25/16 08:43 Dose: 650 mg Al Hydroxide/Mg Hydroxide (Mag-Al Plus) 30 ml PO ASDIRECTED PRN PRN Reason: stomach upset Albuterol (Proventil Neb Soln) 2.5 mg NEB Q4H PRN PRN Reason: Shortness Of Breath/wheezing Albuterol/Ipratropium (Duoneb 3.0-0.5 Mg/3 Ml) 3 ml NEB QIDRT [facility] Last Admin: 10/25/16 14:45 Dose: 3 ml Amlodipine Besylate (Norvasc) 5 mg PO BID [facility] Last Admin: 10/25/16 08:42 Dose: 5 mg Bisacodyl (Dulcolax) 5 mg PO DAILY PRN PRN Reason: Constipation Clonidine HCl (Catapres) 0.2 mg PO TID [facility] Last Admin: 10/25/16 13:30 Dose: 0.2 mg Clopidogrel Bisulfate (Plavix) 75 mg PO DAILY [facility] Last Admin: 10/25/16 08:43 Dose: 75 mg Docusate Sodium (Colace) 100 mg PO BID PRN PRN Reason: Constipation Guaifenesin (Robitussin) 100 mg PO ASDIRECTED PRN PRN Reason: Cough Hydrochlorothiazide (Hydrochlorothiazide) 25 mg PO DAILY [facility] Last Admin: 10/25/16 08:42 Dose: 25 mg Levofloxacin/Dextrose 750 mg/ (Premix) 150 mls @ 100 mls/hr IV Q48H [facility] Sodium Chloride (Normal Saline) 1,000 mls @ 125 mls/hr IV ASDIRECTED [facility] Stop: 10/25/16 20:30 Latanoprost (Xalatan 0.005% Ophth Soln) 0 ml EYEBOTH BEDTIME [facility] Last Admin: 10/24/16 21:12 Dose: 1 drop Lorazepam (Ativan) 1 mg IV Q6H PRN PRN Reason: Nausea/Vomiting Losartan Potassium (Cozaar) 50 mg PO BID [facility] Last Admin: 10/25/16 08:42 Dose: 50 mg Non-Formulary Medication (Peg 400/Hypromellose/Glycerin [Artificial Tears Drops] ) 1 drop EYEBOTH DAILY PRN PRN Reason: Dry Eyes Ondansetron HCl (Zofran Odt) 4 mg PO Q6H PRN PRN Reason: Nausea able to take PO Ondansetron HCl (Zofran) 4 mg IV Q4H PRN PRN Reason: Nausea/Vomiting Oxycodone HCl (Oxycodone) 5 mg PO Q4H PRN PRN Reason: Pain (moderate 4-6) Pramipexole Dihydrochloride (Mirapex) 0.125 mg PO BEDTIME [facility] Last Admin: 10/24/16 21:13 Dose: 0.125 mg Timolol Maleate (Timoptic 0.5% Ophth Soln) 0 ml EYEBOTH BID [facility] Last Admin: 10/25/16 08:43 Dose: 1 drop Discontinued Medications Albuterol/Ipratropium (Duoneb 3.0-0.5 Mg/3 Ml) 3 ml NEB QID [facility] Last Admin: 10/24/16 06:07 Dose: 3 ml Furosemide 20 mg/ Furosemide (40 mg) 60 mg IV ONETIME ONE Stop: 10/24/16 12:46 Last Admin: 10/24/16 14:02 Dose: 60 mg Sodium Chloride (Normal Saline) 1,000 mls @ 125 mls/hr IV ASDIRECTED [facility] Stop: 10/24/16 01:17 Last Admin: 10/23/16 22:42 Dose: 125 mls/hr Levofloxacin/Dextrose 750 mg/ (Premix) 150 mls @ 100 mls/hr IV ONETIME ONE Stop: 10/24/16 00:51 Last Admin: 10/23/16 23:31 Dose: 100 mls/hr Levofloxacin/Dextrose 750 mg/ (Premix) 150 mls @ 100 mls/hr IV Q48H [facility] Last Admin: 10/24/16 02:26 Dose: Not Given Sodium Chloride (Normal Saline) 1,000 mls @ 100 mls/hr IV ASDIRECTED [facility] Pantoprazole Sodium (Protonix Iv) 40 mg IVPUSH DAILY [facility] Last Admin: 10/24/16 10:00 Dose: 40 mg - Exam Quality Assessment: supplemental oxygen, DVT prophylaxis General: alert, oriented, cooperative Lungs: Normal respiratory effort, Wheezing Abdomen: bowel sounds present, soft, no tenderness, no distension Extremities: no edema Skin: warm, dry, intact - Problem List Review Problem List Initiated/Reviewed/Updated: Yes - My Orders Last 24 Hours: My Active Orders 10/25/16 12:15 Sodium Chloride 0.9% [Normal Saline] 1,000 ml IV ASDIRECTED 10/26/16 05:00 BASIC METABOLIC PANEL,BMP [CHEM] Timed - Plan Plan:: ASSESSMENT / PLAN Pneumonia -Oxygen per nasal cannula -Saline lock IV -Advise to notify nurses of any chest pain or other symptoms -And a.m. labs: CBC, BMP -IV Levofloxin 750mg give in ER -Solu-Medrol 40 mg IV q. 8 hours Hypoxia -Supplemental oxygen as needed -Nebulizer therapy as needed Fluid overload-no improvement noted with diuresis -Reassess in the a.m. -Recheck labs in a.m. Chronic kidney disease stage III-creatinine elevated after attempted diuresis yesterday -Recheck labs in a.m. -Closely monitor urine output and renal function during hospital stay Hypertension -order home medications Maintenance issues -Orders home meds: order -Nutrition: Regular diet -Mckeon catheter not indicated at this time -DVT: SCD CODE STATUS: Full Admission status: Admit to [address] [place] [address]. This patient will be admitted for inpatient services and is medically appropriate meeting medical necessity for inpatient admission as outlined in my documentation. I reasonably expect the patient will require inpatient services that span. Time over 2 midnights. I reasonably expect this patient to be discharged or transferred within 96 hours after admission to the critical access hospital. Disposition; [facility] Primary care provider: Dr. Calvillo
[2016-10-25] MEDS: methylPREDNISolone Sodium Succinate 40 MG/1 ML SDV IVPUSH SCH (18:25)
[2016-10-25] MEDS: Pramipexole 0.5 MG Tab PO SCH (20:32)
[2016-10-25] MEDS: Latanoprost 0.005% Ophth Soln 2.5 ML Bottle EYEBOTH SCH (20:34)
[2016-10-25] MEDS ORDERED: Levofloxacin/Dextrose 5%-Water 750 MG in Premix Bag 1 BAG IV SCH (23:00)
[2016-10-26] MEDS: methylPREDNISolone Sodium Succinate 40 MG/1 ML SDV IVPUSH SCH ×3 (00:47→07:55)
[2016-10-26] MEDS: Acetaminophen 325 MG Tab PO PRN (03:37)
[2016-10-26 07:18] VITALS: BP 157/80
[2016-10-26] MEDS ORDERED: Timolol Maleate 0.5% Ophth Soln 5 ML Bottle EYEBOTH SCH (08:00)
[2016-10-26] MEDS: Albuterol/Ipratropium 3.0-0.5 MG/3 ML Neb Soln NEB SCH ×2 (08:09→11:07)
[2016-10-26] MEDS: Hydrochlorothiazide 25 MG Tab PO SCH (09:05)
[2016-10-26] MEDS: Clopidogrel 75 MG Tab PO SCH (09:05)
[2016-10-26] MEDS: cloNIDine 0.1 MG Tab PO SCH (09:05)
[2016-10-26] MEDS: amLODIPine 5 MG Tab PO SCH (09:05)
[2016-10-26] MEDS: Losartan 50 MG Tab PO SCH (09:05)
[2016-10-26] MEDS: Acetaminophen 325 MG Tab PO SCH (09:10)
--- NOTE | 2016-10-26 10:15 | PCM.DCSUM1 ---
Discharge Summary - Hospital Course Brief History: This patient is an 86-year-old woman who was admitted through the emergency department with cough, shortness of breath, hypoxia, secondary to pneumonia and fluid overload. - Discharge Data Discharge Date: 10/26/16 Discharge Disposition: DC/Tfer to Other 70 Condition: Fair - Discharge Diagnosis/Problem(s) (1) CKD (chronic kidney disease) stage 4, GFR 15-29 ml/min SNOMED Code(s): 581836185 ICD Code: N18.4 - CHRONIC KIDNEY DISEASE, STAGE 4 (SEVERE) Status: Acute Current Visit: Yes (2) Pneumonia SNOMED Code(s): 703177108 ICD Code: J18.9 - PNEUMONIA, UNSPECIFIED ORGANISM Status: Acute Priority : High Current Visit: Yes Qualifiers: Pneumonia type: due to unspecified organism Laterality: bilateral Lung location: unspecified part of lung Qualified Code(s): J18.9 - Pneumonia, unspecified organism (3) Hypertension SNOMED Code(s): 28722639 ICD Code: I10 - ESSENTIAL (PRIMARY) HYPERTENSION Status: Chronic Priority : Medium Current Visit: No Qualifiers: Hypertension type: essential hypertension Qualified Code(s): I10 - Essential (primary) hypertension (4) Acute respiratory failure with hypoxia SNOMED Code(s): 90159336, 542218990 ICD Code: J96.01 - ACUTE RESPIRATORY FAILURE WITH HYPOXIA Status: Acute Current Visit: Yes - Patient Summary/Data Hospital Course: This patient is an 86-year-old woman who presented to the emergency department with increased shortness of breath and hypoxia, as well as a cough. She not felt well over the past few days prior to admission, symptoms have developed over that period of time. On initial assessment was felt to have pulmonary infiltrate consistent with pneumonia, white blood cell count was within normal range. Chest x-ray also suggested some pulmonary edema likely contributing to her shortness of breath and hypoxia. He was admitted to the hospital with supplemental oxygen, nebulizer therapy, and IV antibiotic therapy. Following day she was given IV diuretic therapy for management of her fluid overload. Complicating management is her underlying stage IV chronic kidney disease. Renal function did worsen with diuresis but had returned to baseline by the time of discharge. She was started on IV Solu-Medrol during hospital stay and will be discharged on a few days of oral prednisone because of significant wheezing. She will remain on oral antibiotic therapy for an additional 4 days. Activity will be as tolerated and she will be on a 2 g sodium diet. Followup appointment will be scheduled with her primary care provider within one week. - Patient Instructions Diet: Low Sodium Activity: As Tolerated Other/Special Instructions: Schedule followup appointment with primary care provider Mario Du within one week. - Discharge Plan Prescriptions/Med Rec: Levofloxacin [Levaquin] 500 mg PO Q24H #4 tablet Prednisone [IMW: predniSONE] 40 mg PO WITHBREAKFAST #6 tab Home Medications: Home Meds Bimatoprost [Lumigan 0.01% Ophth Soln] 1 drop EYEBOTH DAILY 03/20/14 [History] Timolol Maleate [Timoptic 0.5% Ophth Soln] 1 drop EYEBOTH BID 03/20/14 [History] amLODIPine Besylate [Amlodipine Besylate] 5 mg PO BID 03/20/14 [History] cloNIDine [Catapres] 0.2 mg PO TID 03/20/14 [History] Clopidogrel [Plavix] 75 mg PO DAILY 04/06/15 [History] Multivitamin [Multivitamins] 1 tab PO DAILY 04/06/15 [History] atorvaSTATin [Lipitor] 40 mg PO BEDTIME 04/06/15 [History] Acetaminophen 650 mg PO DAILY 10/13/15 [History] Hydrochlorothiazide [Microzide] 2 tab PO DAILY 10/13/15 [History] Losartan [Cozaar] 50 mg PO BID 10/13/15 [History] [place]-3 Fatty Acids [Fish Oil] 1,200 mg PO DAILY 10/13/15 [History] PEG 400/Hypromellose/Glycerin [Artificial Tears Drops] 1 drop EYEBOTH DAILY PRN 10/13/15 [History] Pramipexole [Mirapex] 0.125 mg PO BEDTIME 10/13/15 [History] Alum Hydrox/Mag Hydrox/Simeth [Maalox Advanced] 30 ml PO ASDIRECTED PRN [History] Bisacodyl [Biscolax] 10 mg RC ASDIRECTED PRN 10/23/16 [History] Bismuth Subsalicylate [Pepto Bismol] 30 ml PO ASDIRECTED PRN 10/23/16 [History] Loperamide [Imodium AD] 2 mg PO ASDIRECTED PRN 10/23/16 [History] Magnesium Hydroxide [Milk of Magnesia] 30 ml PO ASDIRECTED PRN 10/23/16 [History ] Polyethylene Glycol 3350 [MiraLAX] 17 gm PO ASDIRECTED PRN 10/23/16 [History] guaiFENesin [Tussin] 10 ml PO ASDIRECTED PRN 10/23/16 [History] Levofloxacin [Levaquin] 500 mg PO Q24H #4 tablet 10/26/16 [Rx] Prednisone [IMW: predniSONE] 40 mg PO WITHBREAKFAST #6 tab 10/26/16 [Rx] Referrals: Harmeet Calvillo MD [Primary Care Provider] - - Patient Data Vitals - Most Recent: Last Vital Signs Temp 97.2 F 10/26/16 07:15 Pulse 92 10/26/16 08:10 Resp 16 10/26/16 07:15 BP 157/80 H 10/26/16 09:05 Pulse Ox 94 L 10/26/16 08:10 Weight - Most Recent: 219 lb 4 oz I&O - Last 24 hours: Intake & Output 10/25/16 10/26/16 10/26/16 22:59 06:59 14:59 Intake Total 240 150 540 Output Total 500 Balance 240 -350 540 Lab Results - Last 24 hrs: Laboratory Results - last 24 hr 10/26/16 Range/Units 05:00 Sodium 139 L (140-148) mmol/L Potassium 4.6 (3.6-5.2) mmol/L Chloride 102 (100-108) mmol/L Carbon Dioxide 29 (21-32) mmol/L Anion Gap 12.6 (5.0-14.0) mmol/L BUN 41 H (7-18) mg/dL Creatinine 1.8 H (0.6-1.0) mg/dL Est Cr Clr Drug Dosing 19.78 mL/min Estimated GFR (MDRD) 27 L (>60) Glucose 164 H (74-106) mg/dL Calcium 8.5 (8.5-10.1) mg/dL Med Orders - Current: Current Medications Acetaminophen (Tylenol) 650 mg PO Q4H PRN PRN Reason: Pain (Mild 1-3)/fever Last Admin: 10/26/16 03:37 Dose: 650 mg Acetaminophen (Tylenol) 650 mg PO DAILY [facility] Last Admin: 10/26/16 09:10 Dose: 650 mg Al Hydroxide/Mg Hydroxide (Mag-Al Plus) 30 ml PO ASDIRECTED PRN PRN Reason: stomach upset Albuterol (Proventil Neb Soln) 2.5 mg NEB Q4H PRN PRN Reason: Shortness Of Breath/wheezing Albuterol/Ipratropium (Duoneb 3.0-0.5 Mg/3 Ml) 3 ml NEB QIDRT [facility] Last Admin: 10/26/16 08:09 Dose: 3 ml Amlodipine Besylate (Norvasc) 5 mg PO BID [facility] Last Admin: 10/26/16 09:05 Dose: 5 mg Bisacodyl (Dulcolax) 5 mg PO DAILY PRN PRN Reason: Constipation Clonidine HCl (Catapres) 0.2 mg PO TID [facility] Last Admin: 10/26/16 09:05 Dose: 0.2 mg Clopidogrel Bisulfate (Plavix) 75 mg PO DAILY [facility] Last Admin: 10/26/16 09:05 Dose: 75 mg Docusate Sodium (Colace) 100 mg PO BID PRN PRN Reason: Constipation Guaifenesin (Robitussin) 100 mg PO ASDIRECTED PRN PRN Reason: Cough Hydrochlorothiazide (Hydrochlorothiazide) 25 mg PO DAILY [facility] Last Admin: 10/26/16 09:05 Dose: 25 mg Levofloxacin/Dextrose 750 mg/ (Premix) 150 mls @ 100 mls/hr IV Q48H [facility] Last Admin: 10/25/16 23:46 Dose: 100 mls/hr Latanoprost (Xalatan 0.005% Ophth Soln) 0 ml EYEBOTH BEDTIME [facility] Last Admin: 10/25/16 20:34 Dose: 1 drop Lorazepam (Ativan) 1 mg IV Q6H PRN PRN Reason: Nausea/Vomiting Losartan Potassium (Cozaar) 50 mg PO BID [facility] Last Admin: 10/26/16 09:05 Dose: 50 mg Methylprednisolone Sodium Succinate (Solu-Medrol) 40 mg IVPUSH Q8H [facility] Last Admin: 10/26/16 07:55 Dose: Not Given Non-Formulary Medication (Peg 400/Hypromellose/Glycerin [Artificial Tears Drops] ) 1 drop EYEBOTH DAILY PRN PRN Reason: Dry Eyes Ondansetron HCl (Zofran Odt) 4 mg PO Q6H PRN PRN Reason: Nausea able to take PO Ondansetron HCl (Zofran) 4 mg IV Q4H PRN PRN Reason: Nausea/Vomiting Oxycodone HCl (Oxycodone) 5 mg PO Q4H PRN PRN Reason: Pain (moderate 4-6) Pramipexole Dihydrochloride (Mirapex) 0.125 mg PO BEDTIME [facility] Last Admin: 10/25/16 20:32 Dose: 0.125 mg Timolol Maleate (Timoptic 0.5% Ophth Soln) 0 ml EYEBOTH BID@0800,1800 [facility] Last Admin: 10/26/16 07:48 Dose: 1 drop Discontinued Medications Albuterol/Ipratropium (Duoneb 3.0-0.5 Mg/3 Ml) 3 ml NEB QID [facility] Last Admin: 10/24/16 06:07 Dose: 3 ml Furosemide 20 mg/ Furosemide (40 mg) 60 mg IV ONETIME ONE Stop: 10/24/16 12:46 Last Admin: 10/24/16 14:02 Dose: 60 mg Sodium Chloride (Normal Saline) 1,000 mls @ 125 mls/hr IV ASDIRECTED [facility] Stop: 10/24/16 01:17 Last Admin: 10/23/16 22:42 Dose: 125 mls/hr Levofloxacin/Dextrose 750 mg/ (Premix) 150 mls @ 100 mls/hr IV ONETIME ONE Stop: 10/24/16 00:51 Last Admin: 10/23/16 23:31 Dose: 100 mls/hr Levofloxacin/Dextrose 750 mg/ (Premix) 150 mls @ 100 mls/hr IV Q48H [facility] Last Admin: 10/24/16 02:26 Dose: Not Given Sodium Chloride (Normal Saline) 1,000 mls @ 100 mls/hr IV ASDIRECTED [facility] Sodium Chloride (Normal Saline) 1,000 mls @ 125 mls/hr IV ASDIRECTED [facility] Stop: 10/25/16 20:30 Pantoprazole Sodium (Protonix Iv) 40 mg IVPUSH DAILY [facility] Last Admin: 10/24/16 10:00 Dose: 40 mg Timolol Maleate (Timoptic 0.5% Ophth Soln) 0 ml EYEBOTH BID [facility] Last Admin: 10/25/16 20:30 Dose: 1 drop *Q Meaningful Use (DIS) - VTE *Q VTE Criteria *Q: - Stroke *Q Stroke Criteria *Q: - AMI *Q AMI Criteria *Q:
== END 2016-10-26 11:55 | disposition other institution (70) | DRG 194 ==
LOC: JP.ED 22:02 → JP.MS 10-24 00:39
PROVIDERS: ADMIT Hospitalist; ATTEND Hospitalist
DX: J18.9 Pneumonia, unspecified organism (principal); N18.4 Chronic kidney disease, stage 4 (severe); R09.02 Hypoxemia; E87.70 Fluid overload, unspecified; I12.9 Hypertensive chronic kidney disease with stage 1 through stage 4 chronic kidney disease, or unspecified chronic kidney disease; H40.9 Unspecified glaucoma; E78.5 Hyperlipidemia, unspecified; M19.90 Unspecified osteoarthritis, unspecified site; R06.02 Shortness of breath
CPT/HCPCS: 36415; 71010 ×2; 80053; 81001; 82803; 83605; 83880; 84484; 85025; 85610; 86140; 87040; 87081; 87430; 87804 ×2; 93005; 96365; 99285; J1956; J7040; 80048; 82962; 94640-76; 99283; A9270-GY; C9113; J1940; J2920; J7620

== ENCOUNTER 2017-06-12 16:47 | Emergency (ER) | payer MEDICARE, OTHER, MEDICAID ==
--- NOTE | 2017-06-12 17:45 | EDM.PDOC ---
<Harmeet Johnson - Last Filed: 06/13/17 17:39> ED HPI GENERAL MEDICAL PROBLEM - General Chief Complaint: Cardiovascular Problem Stated Complaint: HIGH BP Time Seen by Provider: 06/12/17 17:35 - Related Data Allergies Allergy/AdvReac Type Severity Reaction Status Date / Time lactose Allergy Abdominal Verified 10/23/16 23:41 Pain Home Meds: Home Meds Timolol Maleate [Timoptic 0.5% Ophth Soln] 1 drop EYEBOTH BID 03/20/14 [History] amLODIPine Besylate [Amlodipine Besylate] 5 mg PO BID 03/20/14 [History] cloNIDine [Catapres] 0.2 mg PO TID 03/20/14 [History] Clopidogrel [Plavix] 75 mg PO DAILY 04/06/15 [History] Multivitamin [Multivitamins] 1 tab PO DAILY 04/06/15 [History] atorvaSTATin [Lipitor] 40 mg PO BEDTIME 04/06/15 [History] Acetaminophen 650 mg PO DAILY 10/13/15 [History] Hydrochlorothiazide [Microzide] 25 mg PO DAILY 10/13/15 [History] Losartan [Cozaar] 50 mg PO BID 10/13/15 [History] [place]-3 Fatty Acids [Fish Oil] 1,200 mg PO DAILY 10/13/15 [History] Pramipexole [Mirapex] 0.125 mg PO BEDTIME 10/13/15 [History] Alum Hydrox/Mag Hydrox/Simeth [Maalox Advanced] 30 ml PO ASDIRECTED PRN [History] Bisacodyl [Biscolax] 10 mg RC ASDIRECTED PRN 10/23/16 [History] Bismuth Subsalicylate [Pepto Bismol] 30 ml PO ASDIRECTED PRN 10/23/16 [History] Loperamide [Imodium AD] 2 mg PO ASDIRECTED PRN 10/23/16 [History] Magnesium Hydroxide [Milk of Magnesia] 30 ml PO ASDIRECTED PRN 10/23/16 [History ] Polyethylene Glycol 3350 [MiraLAX] 17 gm PO ASDIRECTED PRN 10/23/16 [History] guaiFENesin [Tussin] 10 ml PO ASDIRECTED PRN 10/23/16 [History] Albuterol/Ipratropium [DuoNeb 3.0-0.5 MG/3 ML] 1 ampule INH ASDIRECTED PRN 06/12 [History] Bimatoprost [LUMIGAN 0.01% Ophth Soln] 1 drop EYEBOTH BEDTIME 06/12/17 [History] Dextran 70/Hypromellose/PF [Artificial Tears Drops] 1 drop EYEBOTH DAILY [History] Pilocarpine [Pilocar 2% Ophth Soln] 1 drop EYELF QID 06/12/17 [History] Vitamin E 100 unit PO DAILY 06/12/17 [History] Course - Vital Signs Last Recorded V/S: Last Vital Signs Temp 93.7 F L 06/12/17 17:12 Pulse 104 H 06/12/17 17:44 Resp 16 06/12/17 17:14 BP 150/109 H 06/12/17 17:44 Pulse Ox 97 06/12/17 17:44 - Orders/Labs/Meds Orders: Active Orders 24 hr Category Date Time Status Cardiac Monitoring [RC] .As Directed Care 06/12/17 17:42 Active EKG Documentation Completion [RC] ASDIRECTED Care 06/12/17 17:42 Active EKG 12 Lead [EK] Stat Ther 06/12/17 17:42 Ordered Labs: Laboratory Tests 06/12/17 06/12/17 06/12/17 Range/Units 17:41 17:41 17:52 WBC 6.1 (4.5-11.0) K/uL RBC 4.48 (3.30-5.50) M/uL Hgb 13.1 (12.0-15.0) g/dL Hct 39.2 (36.0-48.0) % MCV 88 (80-98) fL MCH 29 (27-31) pg MCHC 33 (32-36) % Plt Count 120 L (150-400) K/uL Neut % (Auto) 61 (36-66) % Lymph % (Auto) 30 (24-44) % Gosper % (Auto) 6 (2-6) % Eos % (Auto) 3 (2-4) % Baso % (Auto) 0 (0-1) % Sodium 137 L (140-148) mmol/L Potassium 4.4 (3.6-5.2) mmol/L Chloride 99 L (100-108) mmol/L Carbon Dioxide 28 (21-32) mmol/L Anion Gap 14.4 H (5.0-14.0) mmol/L BUN 30 H (7-18) mg/dL Creatinine 1.4 H (0.6-1.0) mg/dL Est Cr Clr Drug Dosing 27.53 mL/min Estimated GFR (MDRD) 36 L (>60) Glucose 194 H (74-106) mg/dL Calcium 9.8 D (8.5-10.1) mg/dL Total Bilirubin 0.4 (0.2-1.0) mg/dL AST 46 H (15-37) U/L ALT 68 (12-78) U/L Alkaline Phosphatase 190 H (46-116) U/L Troponin I < 0.017 (0.000-0.056) ng/mL NT-Pro-B Natriuret Pep 99 (5-450) pg/mL Total Protein 8.0 (6.4-8.2) g/dL Albumin 3.7 (3.4-5.0) g/dL Globulin 4.3 H (2.3-3.5) g/dL Albumin/Globulin Ratio 0.9 L (1.2-2.2) Urine Color Yellow Urine Appearance Cloudy Urine pH 5.0 (4.5-8.0) Ur Specific [place] 1.015 (1.008-1.030) Urine Protein 30 H (NEGATIVE) mg/dL Urine Glucose (UA) Normal (NEGATIVE) mg/dL Urine Ketones Negative (NEGATIVE) mg/dL Urine Occult Blood Moderate (NEGATIVE) Urine Nitrite Negative (NEGATIVE) Urine Bilirubin Negative (NEGATIVE) Urine Urobilinogen Normal (NORMAL) mg/dL Ur Leukocyte Esterase Small (NEGATIVE) Urine RBC 0-5 (0-5) Urine WBC 0-5 (0-5) Ur Epithelial Cells Moderate Amorphous Sediment Few Urine Bacteria Few Urine Mucus Few - Re-Assessments/Exams Free Text/Narrative Re-Assessment/Exam: 06/12/17 18:42 Patient initially seen and evaluated by Officer. Care turned over to myself pending laboratory and chest x-ray results. Chest x-ray shows no significant congestive heart failure or infiltrate. 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 Labs show chronic renal insufficiency at level somewhat better or equal to what they have been in the past 1-2 years. Her blood pressure normalized while in the emergency room. I suggested no acute medication changes, more consistent wearing compression stockings on her legs, and a very concerted effort to decrease salt intake. I recheck with internal medicine next week to discuss medications may be worthwhile. Departure - Departure Time of Disposition: 19:02 Disposition: DC/Tfer to [place] [id number] Reason for Transfer *Q: Other Condition: Fair Clinical Impression: CKD (chronic kidney disease) stage 4, GFR 15-29 ml/min, Edema, peripheral Hypertension Qualifiers: Hypertension type: essential hypertension Qualified Code(s): I10 - Essential ( primary) hypertension Instructions: Hypertension, [id number] Referrals: Harmeet Calvillo MD [Primary Care Provider] - Forms: ED Department Discharge Care Plan Goals: Decrease salt intake for the next several days, and consider rechecking with internal medicine at the clinic next week to discuss medications and kidney function. Return sooner if worsening or you develop other concerns. - My Orders Last 24 Hours: My Active Orders 06/12/17 17:42 Cardiac Monitoring [RC] .As Directed EKG Documentation Completion [RC] ASDIRECTED EKG 12 Lead [EK] Stat - Assessment/Plan Last 24 Hours: My Active Orders 06/12/17 17:42 Cardiac Monitoring [RC] .As Directed EKG Documentation Completion [RC] ASDIRECTED EKG 12 Lead [EK] Stat <AdelinarLucas - Last Filed: 06/13/17 17:42> ED HPI GENERAL MEDICAL PROBLEM - General Source of Information: Reports: Patient, Family, RN Notes Reviewed History Limitations: Reports: Physical Impairment - History of Present Illness INITIAL COMMENTS - FREE TEXT/NARRATIVE: 86-year-old female presents emergency department today with caregivers concern about elevated blood pressure, she is known history of chronic hypertension however today blood pressure measured the prison was around 225/110 she denies any symptoms however she has difficulty with hearing uses a pocket talker for communication possibly has had a cough and weight gain over the last month Past Medical History HEENT History: Reports: Cataract, Glaucoma, Hard of Hearing, Impaired Vision, Other (See Below) Other HEENT History: 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 Cardiovascular History: Reports: Arrhythmia, High Cholesterol, Hypertension Gastrointestinal History: Reports: Chronic Constipation, Other (See Below) Other Gastrointestinal History: dyspepsia Genitourinary History: Reports: Urinary Incontinence Musculoskeletal History: Reports: Arthritis, Fracture, Osteoarthritis, Other ( See Below) Other Musculoskeletal History: restless leg Neurological History: Reports: CVA Hematologic History: Reports: Other (See Below) Other Hematologic History: vitamin D deficiency - Infectious Disease History Infectious Disease History: Reports: Other (See Below) Other Infectious Disease History: unknown - Past Surgical History Other HEENT Surgeries/Procedures: cataracts Social & Family History - Tobacco Use Smoking Status *Q: Never Smoker Second Hand Smoke Exposure: No - Caffeine Use Caffeine Use: Reports: Coffee - Alcohol Use Days Per Week of Alcohol Use: 0 - Recreational Drug Use Recreational Drug Use: No - Living Situation & Occupation Living situation: Reports: ED ROS GENERAL - Review of Systems Review Of Systems: See Below Constitutional: Denies: Fever, Chills HEENT: Reports: No Symptoms Respiratory: Reports: Shortness of Breath, Cough. Denies: Sputum Cardiovascular: Reports: Dyspnea on Exertion. Denies: Chest Pain GI/Abdominal: Reports: No Symptoms : Reports: No Symptoms Musculoskeletal: Reports: No Symptoms Skin: Reports: No Symptoms Neurological: Reports: No Symptoms ED EXAM, GENERAL - Physical Exam Exam: See Below Exam Limited By: Physical Impairment General Appearance: Alert, WD/WN, No Apparent Distress Neck: Normal Inspection, Supple, Non-Tender, Full Range of Motion Respiratory/Chest: No Respiratory Distress, Lungs Clear, Normal Breath Sounds, No Accessory Muscle Use Cardiovascular: Regular Rate, Rhythm, No Murmur GI/Abdominal: Soft, Non-Tender Extremities: Other (+1 edema bilaterally) Course - Orders/Labs/Meds Labs: Laboratory Tests 06/12/17 06/12/17 06/12/17 Range/Units 17:41 17:41 17:52 WBC 6.1 (4.5-11.0) K/uL RBC 4.48 (3.30-5.50) M/uL Hgb 13.1 (12.0-15.0) g/dL Hct 39.2 (36.0-48.0) % MCV 88 (80-98) fL MCH 29 (27-31) pg MCHC 33 (32-36) % Plt Count 120 L (150-400) K/uL Neut % (Auto) 61 (36-66) % Lymph % (Auto) 30 (24-44) % Gosper % (Auto) 6 (2-6) % Eos % (Auto) 3 (2-4) % Baso % (Auto) 0 (0-1) % Sodium 137 L (140-148) mmol/L Potassium 4.4 (3.6-5.2) mmol/L Chloride 99 L (100-108) mmol/L Carbon Dioxide 28 (21-32) mmol/L Anion Gap 14.4 H (5.0-14.0) mmol/L BUN 30 H (7-18) mg/dL Creatinine 1.4 H (0.6-1.0) mg/dL Est Cr Clr Drug Dosing 27.53 mL/min Estimated GFR (MDRD) 36 L (>60) Glucose 194 H (74-106) mg/dL Calcium 9.8 D (8.5-10.1) mg/dL Total Bilirubin 0.4 (0.2-1.0) mg/dL AST 46 H (15-37) U/L ALT 68 (12-78) U/L Alkaline Phosphatase 190 H (46-116) U/L Troponin I < 0.017 (0.000-0.056) ng/mL NT-Pro-B Natriuret Pep 99 (5-450) pg/mL Total Protein 8.0 (6.4-8.2) g/dL Albumin 3.7 (3.4-5.0) g/dL Globulin 4.3 H (2.3-3.5) g/dL Albumin/Globulin Ratio 0.9 L (1.2-2.2) Urine Color Yellow Urine Appearance Cloudy Urine pH 5.0 (4.5-8.0) Ur Specific [place] 1.015 (1.008-1.030) Urine Protein 30 H (NEGATIVE) mg/dL Urine Glucose (UA) Normal (NEGATIVE) mg/dL Urine Ketones Negative (NEGATIVE) mg/dL Urine Occult Blood Moderate (NEGATIVE) Urine Nitrite Negative (NEGATIVE) Urine Bilirubin Negative (NEGATIVE) Urine Urobilinogen Normal (NORMAL) mg/dL Ur Leukocyte Esterase Small (NEGATIVE) Urine RBC 0-5 (0-5) Urine WBC 0-5 (0-5) Ur Epithelial Cells Moderate Amorphous Sediment Few Urine Bacteria Few Urine Mucus Few Departure - Departure Reason for Transfer *Q: Other Condition: Good
[2017-06-12 18:15] VITALS: BP 150/109
--- NOTE | 2017-06-13 08:50 | CR ---
Chest 2V INDICATION: htn FINDINGS: Comparison 10/23/2016. Interstitial prominence has resolved since prior exam. Cardiac enlargement. Minimal prominence of the pulmonary vascularity. No focal consolidation or pleur al effusion.
== END 2017-06-12 19:02 ==
LOC: JP.ED 16:47
DX: I12.9 Hypertensive chronic kidney disease with stage 1 through stage 4 chronic kidney disease, or unspecified chronic kidney disease (principal); N18.4 Chronic kidney disease, stage 4 (severe); E78.00 Pure hypercholesterolemia, unspecified; Z79.02 Long term (current) use of antithrombotics/antiplatelets; Z79.899 Other long term (current) drug therapy; Z91.011 Allergy to milk products
CPT/HCPCS: 36415; 71020; 71020-26; 80053; 81001; 83880; 84484; 85025; 93005; 93010; 99284; 99285-25

== ENCOUNTER 2018-07-23 14:01 | Emergency (ER) | payer MEDICARE, OTHER, MEDICAID ==
--- NOTE | 2018-07-23 15:33 | EDM.PDOC ---
ED HPI GENERAL MEDICAL PROBLEM - General Chief Complaint: General Stated Complaint: HIGH BP,HALLUCATIONS Time Seen by Provider: 07/23/18 15:10 Source of Information: Reports: Patient, Family, RN Notes Reviewed History Limitations: Reports: No Limitations - History of Present Illness INITIAL COMMENTS - FREE TEXT/NARRATIVE: 88-year-old female presents emergency department today with issues of hypertension and hallucinations. Family members are with her she does have a history of CVA in the past is currently on Plavix has also had issues with her blood pressure. Family states that when she has trouble with her vision she will have a panic attack causes of blood pressure to be elevated. Was at the [facility] this morning for an exam she has complained of intermittent loss of vision over the last week, per their report ophthalmology felt her vision was stable but was concerned about possible transient ischemic attacks. I did discuss this with the family they feel her current state of health condition and her continued decline as well as a CVA in the past they do not want to pursue any aggressive measures. They are unsure when her now last known well time was therefore they elected not to proceed with any further image studies. - Related Data Allergies Allergy/AdvReac Type Severity Reaction Status Date / Time lactose Allergy Abdominal Verified 06/29/18 14:25 Pain nylon Allergy Blisters Verified 07/23/18 14:21 Home Meds: Home Meds Timolol Maleate [Timoptic 0.5% Ophth Soln] 1 drop EYEBOTH BID 03/20/14 [History] cloNIDine [Catapres] 0.3 mg PO TID 03/20/14 [History] Clopidogrel [Plavix] 75 mg PO DAILY 04/06/15 [History] Acetaminophen 650 mg PO Q4H 10/13/15 [History] Hydrochlorothiazide [Microzide] 37.5 mg PO DAILY 10/13/15 [History] Losartan [Cozaar] 50 mg PO BID 10/13/15 [History] [place]-3 Fatty Acids [Fish Oil] 1,200 mg PO DAILY 10/13/15 [History] Pramipexole [Mirapex] 0.125 mg PO BEDTIME 10/13/15 [History] Bisacodyl [Biscolax] 10 mg RC ASDIRECTED PRN 10/23/16 [History] Loperamide [Imodium AD] 2 mg PO ASDIRECTED PRN 10/23/16 [History] Magnesium Hydroxide [Milk of Magnesia] 30 ml PO ASDIRECTED PRN 10/23/16 [History ] Polyethylene Glycol 3350 [MiraLAX] 8.5 gm PO DAILY 10/23/16 [History] guaiFENesin [Tussin] 10 ml PO ASDIRECTED PRN 10/23/16 [History] Bimatoprost [LUMIGAN 0.01% Ophth Soln] 1 drop EYEBOTH BEDTIME 06/12/17 [History] Dextran 70/Hypromellose/PF [Artificial Tears Drops] 1 drop EYEBOTH BID 06/12/17 [History] Pilocarpine [Pilocar 2% Ophth Soln] 1 drop EYELF QID 06/12/17 [History] Vitamin E 100 unit PO DAILY 06/12/17 [History] Acetaminophen [Mapap] 650 mg PO BID 06/29/18 [History] Metoprolol Succinate 50 mg PO DAILY 06/29/18 [History] hydrALAZINE [Apresoline] 50 mg PO TID 06/29/18 [History] Beta-Carotene(A) w/C & E/Min [Prosight] 1 tab PO DAILY 07/23/18 [History] Ipratropium/Albuterol Sulfate [Iprat-Albut 0.5-3(2.5) mg/3 ml] 3 ml INH Q8H [History] Multivitamin [Multivitamins] 1 tab PO DAILY 07/23/18 [History] Nystatin 1 applic TOP TID 07/23/18 [History] Polymyxin B Sulf/Trimethoprim [Polytrim Eye Drops] 1 - 2 drop EYEBOTH Q4H [History] amLODIPine Besylate [Amlodipine Besylate] 5 mg PO BID 07/23/18 [History] atorvaSTATin [Lipitor] 1 tab PO DAILY 07/23/18 [History] cloNIDine [Catapres] 1 tab PO TID 07/23/18 [History] Past Medical History HEENT History: Reports: Cataract, Glaucoma, Hard of Hearing, Impaired Vision, Other (See Below) Other HEENT History: 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 Cardiovascular History: Reports: Arrhythmia, High Cholesterol, Hypertension Gastrointestinal History: Reports: Chronic Constipation, Other (See Below) Other Gastrointestinal History: dyspepsia Genitourinary History: Reports: Chronic Renal Insuffiency, Urinary Incontinence , Other (See Below) Other Genitourinary History: renal cyst Musculoskeletal History: Reports: Arthritis, Fracture, Osteoarthritis, Other ( See Below) Other Musculoskeletal History: restless leg Neurological History: Reports: CVA Endocrine/Metabolic History: Reports: Obesity/BMI 30+ Hematologic History: Reports: Other (See Below) Other Hematologic History: vitamin D deficiency - Infectious Disease History Infectious Disease History: Reports: Other (See Below) Other Infectious Disease History: unknown - Past Surgical History Other HEENT Surgeries/Procedures: cataracts Social & Family History - Tobacco Use Smoking Status *Q: Never Smoker - Caffeine Use Caffeine Use: Reports: Coffee - Recreational Drug Use Recreational Drug Use: No - Living Situation & Occupation Living situation: Reports: ED ROS GENERAL - Review of Systems Review Of Systems: See Below Constitutional: Reports: No Symptoms HEENT: Reports: Vision Change Respiratory: Reports: No Symptoms Cardiovascular: Reports: No Symptoms GI/Abdominal: Reports: No Symptoms : Reports: No Symptoms Musculoskeletal: Reports: No Symptoms Skin: Reports: No Symptoms Neurological: Reports: No Symptoms Psychiatric: Reports: Hallucinations ED EXAM, GENERAL - Physical Exam Exam: See Below Exam Limited By: Physical Impairment General Appearance: Alert, No Apparent Distress Respiratory/Chest: No Respiratory Distress, Lungs Clear, Normal Breath Sounds, No Accessory Muscle Use Cardiovascular: Regular Rate, Rhythm, No Murmur GI/Abdominal: Soft, Non-Tender Neurological: Alert, Normal Cognition, Other ([place] 5 x 5 in left upper and lower extremity cheatham 5 x 5 right upper extremity slight deficit can be appreciated right lower, has a known history of a right hemiparesis with CVA in the past) Course - Vital Signs Last Recorded V/S: Last Vital Signs Temp 96 F 07/23/18 14:15 Pulse 63 07/23/18 16:16 Resp 17 07/23/18 16:16 BP 165/75 H 07/23/18 16:16 Pulse Ox 95 07/23/18 16:16 - Orders/Labs/Meds Orders: Active Orders 24 hr Category Date Time Status Cardiac Monitoring [RC] .As Directed Care 07/23/18 15:26 Active EKG Documentation Completion [RC] ASDIRECTED Care 07/23/18 15:27 Active EKG 12 Lead [EK] Stat Ther 07/23/18 15:27 Ordered Labs: Laboratory Tests 07/23/18 07/23/18 Range/Units 15:26 15:26 WBC 10.2 (4.5-11.0) K/uL RBC 4.41 (3.30-5.50) M/uL Hgb 12.8 (12.0-15.0) g/dL Hct 39.3 (36.0-48.0) % MCV 89 (80-98) fL MCH 29 (27-31) pg MCHC 33 (32-36) % Plt Count 135 L (150-400) K/uL Add Manual Diff Yes Neutrophils % (Manual) 62 (36-66) % Band Neutrophils % 1 L (5-11) % Lymphocytes % (Manual) 23 L (24-44) % Monocytes % (Manual) 6 (2-6) % Eosinophils % (Manual) 6 H (2-4) % Blast Cells % 2 % Sodium 135 L (140-148) mmol/L Potassium 3.9 (3.6-5.2) mmol/L Chloride 96 L (100-108) mmol/L Carbon Dioxide 28 (21-32) mmol/L Anion Gap 14.9 H (5.0-14.0) mmol/L BUN 37 H (7-18) mg/dL Creatinine 1.7 H (0.6-1.0) mg/dL Est Cr Clr Drug Dosing 22.63 mL/min Estimated GFR (MDRD) 28 L (>60) Glucose 122 H (74-106) mg/dL Calcium 9.3 (8.5-10.1) mg/dL Troponin I < 0.017 (0.000-0.056) ng/mL Meds: Medications Discontinued Medications Generic Name Dose Route Start Last Admin Trade Name Freq PRN Reason Stop Dose Admin Lorazepam 0.5 mg 07/23/18 15:41 07/23/18 16:31 Ativan PO 07/23/18 15:42 0.5 mg ONETIME ONE Administration Departure - Departure Time of Disposition: 17:23 Disposition: Home, Self-Care 01 Condition: Fair Clinical Impression: Hypertensive urgency - Discharge Information Referrals: Harmeet Calvillo MD [Primary Care Provider] - Forms: ED Department Discharge Additional Instructions: ry the Ativan half a tablet to a whole tablet twice a day as needed for anxiety symptoms, recommend starting the low-salt diet, Please followup with your primary care provider in 3-5 days if not better, please call return to the emergency department with worsening of symptoms. - My Orders Last 24 Hours: My Active Orders 07/23/18 15:26 Cardiac Monitoring [RC] .As Directed 07/23/18 15:27 EKG Documentation Completion [RC] ASDIRECTED EKG 12 Lead [EK] Stat - Assessment/Plan Last 24 Hours: My Active Orders 07/23/18 15:26 Cardiac Monitoring [RC] .As Directed 07/23/18 15:27 EKG Documentation Completion [RC] ASDIRECTED EKG 12 Lead [EK] Stat Plan: Assessment Acuity = acute Site and laterality = hypertensive urgency Etiology = unclear etiology Manifestations = [none Location of injury = Home Lab values = CBC unremarkable creatinine elevated 1.7 consistent chronic renal failure stage TIV, troponin is negative EKG demonstrates sinus rhythm with PACs right bundle branch block there is no ST elevations or depressions this EKG is similar to EKG on June 2017 Plan She had good response to Ativan while in the emergency department blood pressure systolic remained around 140 plan is discharge home with Ativan 1 tablet by mouth twice a day when necessary also recommend starting a low salt diet follow-up with primary care 3-5 days if no improvement This note was dictated using [employer] voice recognition software please call with any questions on syntax or grammar.
[2018-07-23] MEDS ORDERED: LORazepam 0.5 MG Tab PO ONE (15:41)
[2018-07-23 17:25] VITALS: BP 143/60
== END 2018-07-23 18:04 | disposition home or self-care (01) ==
LOC: JP.ED 14:01
DX: I16.0 Hypertensive urgency (principal); I12.9 Hypertensive chronic kidney disease with stage 1 through stage 4 chronic kidney disease, or unspecified chronic kidney disease; N18.9 Chronic kidney disease, unspecified; R44.3 Hallucinations, unspecified; E78.00 Pure hypercholesterolemia, unspecified; Z86.73 Personal history of transient ischemic attack (TIA), and cerebral infarction without residual deficits; Z79.01 Long term (current) use of anticoagulants; Z91.011 Allergy to milk products; Z91.048 Other nonmedicinal substance allergy status; Z79.899 Other long term (current) drug therapy
CPT/HCPCS: 36415; 80048; 84484; 85025; 93005; 99284; A9270